=== PATIENT | male | born 1980 | race Hispanic/Latino ===

== ENCOUNTER 2022-01-11 18:12 | Emergency (ER) | payer SELFPAY ==
[2022-01-11] MEDS ORDERED: Lidocaine 1% (PF) 30 ML VIAL ONE (21:51)
== END 2022-01-11 22:20 | disposition home or self-care (01) ==
LOC: CSHERS 18:12
DX: K64.5 Perianal venous thrombosis (principal); I10 Essential (primary) hypertension; F17.210 Nicotine dependence, cigarettes, uncomplicated
CPT/HCPCS: 46083; J2001

== ENCOUNTER 2022-01-13 07:51 | Emergency (ER) | payer SELFPAY ==
[2022-01-13] MEDS ORDERED: Lidocaine 1% w/Epinephrine 1:200K 30 ML VIAL ONE (09:21)
[2022-01-13] MEDS ORDERED: Lidocaine 1% w/Epinephrine 1:200K 30 ML VIAL FS SCH (09:30)
== END 2022-01-13 10:24 | disposition home or self-care (01) ==
LOC: CSHERS 07:51
DX: K64.5 Perianal venous thrombosis (principal); I10 Essential (primary) hypertension; F17.210 Nicotine dependence, cigarettes, uncomplicated
CPT/HCPCS: 99283